=== PATIENT | male | born 1960 | race Hispanic/Latino ===

== ENCOUNTER → 2019-03-07 | Day surgery (SDC) | payer BC ==
[~2019-03-07] MED LIST: BUPIVACAINE 0.25% 30ML SDV INJ ONE; CLINDAMYCIN 300MG 50 ML IV ONE; FENTANYL CITRATE/PF 100MCG/2 ML INJ ONE; GLIPIZIDE10 MG PO; INSULIN REGULAR, HUMAN 100 UNIT/1 ML 3ML VIAL ONE; LIDOCAINE HCL 2% LOCAL INJ 5 ML SDV VIAL INJ ONE; LOSARTAN POTASS25 MG PO; NEOSTIGMINE 1 MG/ML 10ML VIAL ONE; ONDANSETRON HCL INJ 2MG/ML 2ML 2 MG/ML VIAL ONE; PROPOFOL IV EMULSION 10 MG/ML 20 ML VIAL ONE; SEVOFLURANE INHAL SOLN 250 ML PEN BTL ONE; SIMVASTATIN20 MG PO
[2019-03-07 11:55] VITALS: BP 162/91
--- NOTE | 2019-04-23 03:20 | Operative Report ---
DATE OF PROCEDURE: 03/07/2019 SURGEON: Armand Starkey MD PREOPERATIVE DIAGNOSIS: Phimosis. POSTOPERATIVE DIAGNOSIS: Phimosis. OPERATION PERFORMED: 1. Penile nerve block (separate procedure performed for postoperative pain control and not required for the actual performance of the surgery, which was done under general anesthesia). 2. Dorsal slit (separate procedure performed in order to expose the head of the penis). 3. Circumcision. ANESTHESIA: General. COMPLICATIONS: None. CLINICAL SUMMARY: Fco Mayers is a 58-year-old man, who is a diabetic. He has extremely severe phimosis. We cannot see the urethral meatus. He is brought for circumcision. He understands risks of bleeding, infection, injury to adjacent structures, need for additional procedures. He also understands that his glans penis will always be uncovered. He understood these risks and elected to proceed. OPERATIVE PROCEDURE IN DETAIL: Informed consent was verified. Fco Mayers was properly identified, taken to the operating room, placed on the operating table in the supine position. Anesthesia was uneventfully begun. The patient's genitalia were then shaved, prepared, and draped in usual sterile fashion. Marcaine without epinephrine was utilized to infiltrate subcutaneously circumferentially the base of the penis as well as in the region of the dorsal penile nerves. This was done for postoperative pain control and not required for the actual performance of surgery, which was done under general anesthesia. Circumferential incision was then made overlying the zaragoza of the glans penis. A crushing forceps were then utilized to crush the dorsum of the foreskin and the spermatic band. We then following this crushing, we did a dorsal slit. This allowed us to fully retract the foreskin and the patient's penis was then re-prepared with Betadine. A circumferential incision was then made approximately 5 mm away from the zaragoza of the glans penis along the inner preputial skin. A sleeve circumcision was then performed. The foreskin was removed. Pinpoint electrocautery was utilized to achieve hemostasis. The patient's incision was then approximated with 4-0 chromic suture in a running fashion with excellent cosmetic result. Sterile dressing was applied consisting of bacitracin ointment followed by Xeroform gauze, followed by loose-fitting Camacho and the patient was uneventfully reversed from anesthesia and taken to recovery room in stable condition. There were no complications to the procedure. The patient tolerated the procedure well. Sponge, needle, and instrument counts were correct x2 at the end of the case. Estimated blood loss was minimal. Explicit postop instructions were given. We will follow the patient up in the office. MD ROSENDO Oswald/DENIS /[id number]
== END | disposition home or self-care (01) ==
LOC: OR 07:18
PROVIDERS: ATTEND Urology
DX: N47.1 Phimosis (principal); N47.7 Other inflammatory diseases of prepuce; I10 Essential (primary) hypertension; E11.9 Type 2 diabetes mellitus without complications; Z88.0 Allergy status to penicillin; Z79.84 Long term (current) use of oral hypoglycemic drugs; Z87.891 Personal history of nicotine dependence
CPT/HCPCS: 36415; 54161; 82948; 88304; J2001; J2405; J2704; J2710; J3010; J1817